=== PATIENT | male | born 1980 ===

== ENCOUNTER 2021-11-07 12:53 | Emergency (ER) | payer SELFPAY ==
[~2021-11-07] VITALS: Ht 165.1 cm; Wt 76.9 kg
[2021-11-07 13:03] VITALS: TEMP 98.1
[2021-11-07] MEDS ORDERED: CEPHALEXIN500 M1 PO (14:55)
[2021-11-07 15:28] VITALS: BP 124/81; PULSE 80
== END 2021-11-07 15:28 | disposition home or self-care (01) ==
LOC: COL.ER 12:53
DX: S61.215A Laceration without foreign body of left ring finger without damage to nail, initial encounter (principal); W23.0XXA Caught, crushed, jammed, or pinched between moving objects, initial encounter; Y92.59 Other trade areas as the place of occurrence of the external cause; Y99.0 Civilian activity done for income or pay